=== PATIENT | female | born 1945 | race Caucasian/White ===

== ENCOUNTER 2016-10-21 15:00 | Emergency (ER) | payer BC, MEDICARE, OTHER ==
--- NOTE | 2016-10-21 15:25 | ER Document Report ---
ED Extremity Problem, Lower - General Chief Complaint: Leg Pain Stated Complaint: ABNORMAL LABS Time Seen by Provider: 10/21/16 15:10 Mode of Arrival: Ambulatory Information source: Patient TRAVEL OUTSIDE OF THE [place] IN LAST 30 DAYS: No - HPI Patient complains to provider of: Pain Location: Thigh Occurred: Other - 2 weeks Onset/Duration: Persistent Quality of pain: Achy Recent injury: No Exacerbated by: Nothing Relieved by: Nothing Notes: Patient is a 71-year-old female who was sent from urgent care to have blood work done related to pain in her left thigh, patient reports the pain is been going on for the past few weeks, it hurts when she touches the area, she states it feels like nerve pain, she denies any injury, no difficulty ambulating, no fevers, she does have a history of scoliosis and low back pain, she denies any urinary symptoms, she went to the urgent care today who recommended she have a d -dimer performed to rule out a DVT, denies any chest pain or shortness of breath , no recent periods of immobilization, she does have a history of bilateral knee replacements, recently attended 2 of her children's [facility] and wear shoes with a small heel which she typically does not do - Related Data Allergies/Adverse Reactions: fosinopril sodium [From Monopril] Allergy (Verified 02/01/12 13:48) throat swelling prochlorperazine edisylate [From Compazine] Allergy (Verified 02/01/12 13:48) Hyperactivity prochlorperazine maleate [From Compazine] Allergy (Verified 02/01/12 13:48) Hyperactivity Past Medical History - General Information source: Patient - Social History Smoking Status: Never Smoker Chew tobacco use (# tins/day): No Frequency of alcohol use: None Family History: Reviewed & Not Pertinent Patient has suicidal ideation: No Patient has homicidal ideation: No - Past Medical History Cardiac Medical History: Reports: Hx Hypercholesterolemia, Hx Hypertension Renal/ Medical History: Denies: Hx Peritoneal Dialysis GI Medical History: Reports: Hx Gastroesophageal Reflux Disease Past Surgical History: Reports: Hx Orthopedic Surgery - bilateral knee replacements, Hx Thyroid Surgery - Immunizations Hx Diphtheria, Pertussis, Tetanus Vaccination: No Review of Systems - Review of Systems Constitutional: No symptoms reported EENT: No symptoms reported Cardiovascular: No symptoms reported Respiratory: No symptoms reported Gastrointestinal: No symptoms reported Genitourinary: No symptoms reported Female Genitourinary: No symptoms reported Musculoskeletal: See HPI Skin: No symptoms reported Hematologic/Lymphatic: No symptoms reported Neurological/Psychological: No symptoms reported -: Yes All other systems reviewed and negative Physical Exam - Vital signs Vitals: Temp Pulse Resp BP Pulse Ox 98 F 65 16 153/63 H 97 10/21/16 15:03 10/21/16 15:03 10/21/16 15:03 10/21/16 15:03 10/21/16 15:03 - Notes Notes: - General General appearance: Appears well, Alert In distress: None - HEENT Head: Normocephalic, Atraumatic Eyes: Normal Conjunctiva: Normal Extraocular movements intact: Yes Eyelashes: Normal Pupils: PERRL - Respiratory Respiratory status: No respiratory distress - Cardiovascular Rhythm: Regular - Abdominal Inspection: Normal - Back Back: Normal - Extremities General upper extremity: Normal inspection General lower extremity: Normal inspection, normal range of motion, no point tenderness, no calf tenderness, negative Homans sign, distal sensation and motor is intact with 2 - Neurological Neuro grossly intact: Yes Orientation: AAOx4 [place] Coma Scale Eye Opening: Spontaneous [place] Coma Scale Verbal: Oriented [place] Coma Scale Motor: Obeys Commands [place] Coma Scale Total: 15 - Psychological Associated symptoms: Normal affect, Normal mood - Skin Skin Temperature: Warm Skin Moisture: Dry Skin Color: Normal Course - Vital Signs Vital signs: Temp Pulse Resp BP Pulse Ox 98 F 65 16 153/63 H 97 10/21/16 15:03 10/21/16 15:03 10/21/16 15:03 10/21/16 15:03 10/21/16 15:03 Discharge - Discharge Clinical Impression: Thigh pain Qualifiers: Laterality: left Qualified Code(s): M79.652 - Pain in left thigh Condition: Stable Disposition: HOME, SELF-CARE Instructions: Leg Pain Nonspecific ([facility]) Additional Instructions: Follow up with your primary care provider in one to 2 days. Return to the emergency room immediately if symptoms worsen or any additional concerns.
[2016-10-21 16:30] VITALS: BP 120/44
== END 2016-10-21 16:10 | disposition home or self-care (01) ==
LOC: ER 15:00
DX: M79.652 Pain in left thigh (principal); E78.00 Pure hypercholesterolemia, unspecified; I10 Essential (primary) hypertension; K21.9 Gastro-esophageal reflux disease without esophagitis; Z96.653 Presence of artificial knee joint, bilateral
CPT/HCPCS: 36415; 85379; 99283

== ENCOUNTER 2017-05-03 09:33 | Day surgery (SDC) | payer BC, MEDICARE, OTHER ==
[~2017-05-03 09:33] MED LIST: KETOROLAC TROMETHAMINE 0.45% 4 DROP/0.4 ML DROPERETTE OS PRN
[2017-05-03] MEDS: TETRACAINE HCL 0.5% OPH SOLN 2 ML OS PRN ×3 (10:02→10:33)
[2017-05-03] MEDS: BESIFLOXACIN HCL 0.6% OPH SUSP 5 ML BOTTLE OS PRN ×3 (10:03→11:00)
[2017-05-03] MEDS: TROPICAMIDE 1% OPH SOLN 3 ML OS PRN ×3 (10:03→10:27)
[2017-05-03] MEDS: CYCLOPENTOLATE 0.2%/PHENYLEPHRINE 1% OPH SOLN 2 ML OS PRN ×3 (10:03→10:27)
[2017-05-03] MEDS ORDERED: CHONDR SU A NA/HYALUR INTRAOC KIT (SURGICARE) ONE (10:09)
[2017-05-03] MEDS ORDERED: EPINEPHRINE INJ/PF 1 MG/1 ML AMPULE ONE (10:09)
[2017-05-03] MEDS ORDERED: LIDOCAINE 1% INJ-PF (10 MG/ML) 30 ML SDV ONE (10:09)
[2017-05-03] MEDS ORDERED: MIDAZOLAM 2 MG/2 ML INJ ONE (10:29)
[2017-05-03] MEDS ORDERED: FENTANYL CITRATE INJ/PF 100 MCG/2 ML AMPUL ONE (10:29)
--- NOTE | 2017-05-03 19:43 | [facility] OPERATIVE REPORT E ---
[facility] Operative Report NAME: CARY BOUDREAUX AGE: 71Y DATE OF SURGERY: 05/03/2017 ROOM: PREOPERATIVE DIAGNOSIS: CATARACT, LEFT EYE. POSTOPERATIVE DIAGNOSIS: CATARACT, LEFT EYE. OPERATION: Cataract extraction with toric IOL. SURGEON: TUCKER ANGELO M.D. ANESTHESIA: Topical. PROCEDURE: After obtaining appropriate consent, the patient's left eye was prepped and draped in sterile fashion as well as the surgeon in a sterile manner and cataract surgery was started. First a paracentesis blade was used to make a small side-port incision. Viscoelastic was used to inflate the anterior chamber. Next a 2.4 mm incision was made with the paracentesis blade. A continuous capsulorrhexis incision was made using a cystotome and Utrata forceps. Following this hydrodissection was carried out to make the lens fully loose and mobile and it was rotated 90 degrees. Following this, a fhgtsl-qic-vywbish technique was used to phacoemulsify the lens with a CDE of 5.62. The remaining cortex was removed with irrigation/aspiration. Provisc was instilled into the capsular bag to inflate the bag. A [id number], 22.0 toric lens was placed. The remaining viscoelastic material was removed with irrigation/aspiration. Following this, a 10-0 nylon suture was used to close the incision and it was found to be watertight. Vigamox was instilled in the eye and a protective shield was placed over the eye. The patient returned to the postoperative recovery in stable condition. Lens rotated to 5 degrees. DICTATING PHYSICIAN: TUCKER ANGELO M.D. [id number] PHY#: [id number] ID: [id number] JOB#: [id number] ACCT: [id number] cc:TUCKER ANGELO M.D. >
--- NOTE | 2017-05-03 19:44 | [facility] DISCHARGE SUMMARY E ---
[facility] Discharge Summary NAME: CARY BOUDREAUX AGE: 71Y ADMITTED: 05/03/2017 DISCHARGED: 05/03/2017 HOSPITAL COURSE: This is a 71-year-old female who underwent cataract extraction with a toric IOL of the left eye. DIAGNOSIS: CATARACT, LEFT EYE. The patient underwent surgery because she was having difficulty reading small print. DISCHARGE INSTRUCTIONS: She is to be on a regular diet. No bending at her waist, no heavy lifting. She should use Besivance, Ilevro, and Durezol at 3 p.m. and 8 p.m. and sleep with a rigid shield. I will see her for her 1 day postoperative tomorrow. DICTATING PHYSICIAN: TUCKER ANGELO M.D. [id number] PHY#: [id number] ID: [id number] JOB#: [id number] ACCT: [id number] cc:TUCKER ANGELO M.D. > MTDD
== END 2017-05-03 11:46 | disposition home or self-care (01) ==
LOC: SC 09:33
PROVIDERS: ATTEND Internal Medicine
PROC: 08RK3JZ Replacement of Left Lens with Synthetic Substitute, Percutaneous Approach (ICD-10-PCS; principal; 2017-05-03 11:00)
DX: H25.812 Combined forms of age-related cataract, left eye (principal); I10 Essential (primary) hypertension; K21.9 Gastro-esophageal reflux disease without esophagitis; E07.9 Disorder of thyroid, unspecified; Z88.2 Allergy status to sulfonamides; Z88.8 Allergy status to other drugs, medicaments and biological substances
CPT/HCPCS: 66984; V2787; J2250; J3490 ×2; J0171; J3010; 160

== ENCOUNTER 2017-05-24 09:29 | Day surgery (SDC) | payer BC, MEDICARE, OTHER ==
[~2017-05-24 09:29] MED LIST changes: +KETOROLAC TROMETHAMINE 0.45% 4 DROP/0.4 ML DROPERETTE OD PRN; -KETOROLAC TROMETHAMINE 0.45% 4 DROP/0.4 ML DROPERETTE OS PRN
[2017-05-24] MEDS: CYCLOPENTOLATE 0.2%/PHENYLEPHRINE 1% OPH SOLN 2 ML OD PRN ×3 (10:35→10:55)
[2017-05-24] MEDS: TROPICAMIDE 1% OPH SOLN 3 ML OD PRN ×3 (10:35→10:55)
[2017-05-24] MEDS ORDERED: EPINEPHRINE INJ/PF 1 MG/1 ML AMPULE ONE (10:35)
[2017-05-24] MEDS: BESIFLOXACIN HCL 0.6% OPH SUSP 5 ML BOTTLE OD PRN ×3 (10:35→11:55)
[2017-05-24] MEDS ORDERED: CHONDR SU A NA/HYALUR INTRAOC KIT (SURGICARE) ONE (10:36)
[2017-05-24] MEDS ORDERED: LIDOCAINE 1% INJ-PF (10 MG/ML) 30 ML SDV ONE (10:36)
[2017-05-24] MEDS: TETRACAINE HCL 0.5% OPH SOLN 2 ML OD PRN ×3 (10:36→11:29)
[2017-05-24] MEDS ORDERED: MIDAZOLAM 2 MG/2 ML INJ ONE (11:02)
[2017-05-24] MEDS ORDERED: FENTANYL CITRATE INJ/PF 100 MCG/2 ML AMPUL ONE (11:03)
[2017-05-24] MEDS ORDERED: ONDANSETRON HCL INJ/PF 4 MG/2 ML SDV ONE (11:04)
--- NOTE | 2017-05-24 21:18 | [facility] DISCHARGE SUMMARY E ---
[facility] Discharge Summary NAME: CARY BOUDREAUX AGE: 71Y ADMITTED: 05/24/2017 DISCHARGED: 05/24/2017 HOSPITAL COURSE: This is a 7`-year-old female who underwent cataract extraction of the right eye. DIAGNOSIS: CATARACT, RIGHT EYE WITH INSERTION OF A TORIC IOL. The patient underwent surgery because she was having difficulty having glare secondary to the cataract when driving at night. DISCHARGE INSTRUCTIONS: She is to be on a regular diet. No bending at the waist, no heavy lifting. She should use Besivance, Ilevro, and Durezol at 3 p.m. and 8 p.m. and sleep with a rigid shield. I will see her for a 1 day postoperative tomorrow. DICTATING PHYSICIAN: TUCKER ANGELO M.D. [id number] PHY#: [id number] ID: [id number] JOB#: [id number] ACCT: [id number] cc:TUCKER ANGELO M.D. >
--- NOTE | 2017-05-24 21:18 | [facility] OPERATIVE REPORT E ---
[facility] Operative Report NAME: CARY BOUDREAUX AGE: 71Y DATE OF SURGERY: 05/24/2017 ROOM: PREOPERATIVE DIAGNOSIS: CATARACT, RIGHT EYE. POSTOPERATIVE DIAGNOSIS: CATARACT, RIGHT EYE. OPERATION: Cataract extraction with toric IOL implant of the right eye. SURGEON: TUCKER ANGELO M.D. ANESTHESIA: Topical. PROCEDURE: After obtaining appropriate consent, the patient's right eye was prepped and draped in sterile fashion as well as the surgeon in a sterile manner and cataract surgery was started. First a paracentesis blade was used to make a small side-port incision. Viscoelastic was used to inflate the anterior chamber. Next a 2.4 mm incision was made with the paracentesis blade. A continuous capsulorrhexis incision was made using a cystotome and Utrata forceps. Following this hydrodissection was carried out to make the lens fully loose and mobile and it was rotated 175 degrees. Following this, a bhdxse-ohu-zcwrwmb technique was used to phacoemulsify the lens with a CDE of 8.78. The remaining cortex was removed with irrigation/aspiration. Provisc was instilled into the capsular bag to inflate the bag. A [id number], 21.5 diopter lens was placed. The remaining viscoelastic material was removed with irrigation/aspiration. Following this, a 10-0 nylon suture was used to close the incision and it was found to be watertight. Vigamox was instilled in the eye and a protective shield was placed over the eye. The patient returned to the postoperative recovery in stable condition. DICTATING PHYSICIAN: TUCKER ANGELO M.D. [id number] PHY#: [id number] ID: [id number] JOB#: [id number] ACCT: [id number] cc:TUCKER ANGELO M.D. >
== END 2017-05-24 12:53 | disposition home or self-care (01) ==
LOC: SC 09:29
PROVIDERS: ATTEND Internal Medicine
PROC: 08RJ3JZ Replacement of Right Lens with Synthetic Substitute, Percutaneous Approach (ICD-10-PCS; principal; 2017-05-24 12:00)
DX: H25.89 Other age-related cataract (principal); Z96.1 Presence of intraocular lens; I10 Essential (primary) hypertension; K21.9 Gastro-esophageal reflux disease without esophagitis; E07.9 Disorder of thyroid, unspecified; Z88.2 Allergy status to sulfonamides
CPT/HCPCS: 66984; V2787; J2250; J3490 ×2; J0171; J3010; J2405; 142

== ENCOUNTER → 2020-05-25 | Outpatient (CLI) | payer BC, MEDICARE, OTHER ==
--- NOTE | 2020-05-26 08:20 | RADIOLOGY REPORT (SQ) ---
EXAM DESCRIPTION: CHEST 2 VIEWS IMAGES COMPLETED DATE/TIME: 05/25/2020 5:36 pm REASON FOR STUDY: R05)COUGH COMPARISON: None. EXAM PARAMETERS: NUMBER OF VIEWS: two views TECHNIQUE: Digital Frontal and Lateral radiographic views of the chest acquired. RADIATION DOSE: NA LIMITATIONS: none FINDINGS: LUNGS AND PLEURA: There is a calcified granuloma in the right base. Lung mireles are other manzano clear. No consolidation or effusion. MEDIASTINUM AND HILAR STRUCTURES: No masses or contour abnormalities. HEART AND VASCULAR STRUCTURES: Heart normal size. No evidence for failure. BONES: No acute findings. HARDWARE: None in the chest. OTHER: No other significant finding. IMPRESSION: NO ACUTE RADIOGRAPHIC FINDING IN THE CHEST. TECHNICAL DOCUMENTATION: JOB ID: [id number] 2010 [employer]- All Rights Reserved Reading location - IP/workstation name: [email or web address]
== END ==
LOC: RAD 17:12
PROVIDERS: ATTEND Nurse Practitioner Family
DX: R05 Cough (principal)
CPT/HCPCS: 71046